=== PATIENT | female | born 1970 | race Caucasian/White ===

== ENCOUNTER → 2018-06-16 | Outpatient (CLI) | payer BC ==
[2018-06-17 09:39] LABS: Candida species (DNA Probe) Negative (NEGATIVE); G. vaginalis (DNA Probe) Negative (NEGATIVE); T. vaginalis (DNA Probe) Negative (NEGATIVE)
== END ==
LOC: LAB 10:45 → LAB SHORT 10:45
PROVIDERS: Nurse Practitioner Obstetrics & Gynecology
DX: N76.0 Acute vaginitis (principal)
CPT/HCPCS: 87480; 87510; 87660

== ENCOUNTER → 2018-11-08 | Outpatient (CLI) | payer BC ==
[~2018-11-08] MED LIST: Aviane1 EACH PO; CLON.5 PO; HYDPAM50 PO; MELA3 PO
== END | disposition home or self-care (01) ==
LOC: LAB SRC 11:45 → LAB SHORT 11:45
DX: N39.0 Urinary tract infection, site not specified (principal)
CPT/HCPCS: 87077; 87086; 87186

== ENCOUNTER → 2018-12-15 | Outpatient (CLI) | payer BC | END | disposition home or self-care (01) | LOC: LAB EV 13:35 → LAB SHORT 13:35 | DX: N39.0 Urinary tract infection, site not specified (principal) | CPT/HCPCS: 87077; 87086; 87186 ==

== ENCOUNTER → 2019-01-01 | Outpatient (CLI) | payer BC | END | disposition home or self-care (01) | LOC: LAB SHORT 11:00 → LAB 11:00 | DX: L08.9 Local infection of the skin and subcutaneous tissue, unspecified (principal) | CPT/HCPCS: 87070; 87077; 87147; 87186; 87205 ==

== ENCOUNTER → 2020-05-17 | Outpatient (CLI) | payer OTHER ==
[2020-05-21 15:08] LABS: HPV 16 Positive (Negative); HPV 18 Negative (Negative); HPV OTHER HR TYPES Negative (Negative)
== END | disposition home or self-care (01) ==
LOC: LAB SHORT 17:40 → LAB SRC 17:40
PROVIDERS: Nurse Practitioner Family
DX: Z12.4 Encounter for screening for malignant neoplasm of cervix (principal)
CPT/HCPCS: 87624; 87625; G0123

== ENCOUNTER 2021-07-30 08:00 | Day surgery (SDC) | payer BC ==
[~2021-07-30 08:00] MED LIST changes: +ALBU90OI INH; +AMLO5 PO; +BENZ100A PO; +FLONASE ALLERG9.9 M2; +LEVONOR-ETH ES1 EAC6 PO; +METO25ER PO; +POTA10T PO; +PSEUDOEPHEDRINE30 M1 PO; +TORS10 PO
== END 2021-08-01 23:29 | disposition home or self-care (01) ==
LOC: MHTC 08:00
DX: I27.20 Pulmonary hypertension, unspecified (principal); I50.810 Right heart failure, unspecified
CPT/HCPCS: J1644; J7030; J7050

== ENCOUNTER 2022-02-07 07:23 | Day surgery (SDC) | payer BC, OTHER ==
[~2022-02-07] VITALS: Ht 167.6 cm; Wt 68.0 kg
--- NOTE | 2022-02-07 10:57 | NUR ---
PT SITTING UP IN BED BEING FED BY SIGNIFICANT OTHER. PT IS AOX4, DENIES ANY PAIN. NO BLEEDING, OOZING OR HEMATOMA NOTED AT RRAD ACCES SITE. R BRACHIAL VEIN SITE HAS NO BLEEDING, OOZING OR HEMATOMA NOTED. WILL CONTINUE TO MONITOR. VSS
--- NOTE | 2022-02-07 11:33 | NUR ---
Dr Bell her to discuss finding of the procedure with patient and significant other. questions answered.
--- NOTE | 2022-02-07 12:06 | NUR ---
3mL AIR RELEASED FROM TR BAND. NO BLEEDING, OOZING OR HEMATOMA NOTED. VSS. WILL CONTINUE TO MONITOR.
--- NOTE | 2022-02-07 12:23 | NUR ---
RELEASED AN ADDITIONAL 3mL AIR FROM TR BAND. SITE WAS STABLE AND THEN STARTED BLEEDING. AIR REPLACED BACK INTO BAND. WILL WAIT ANOTHER HOUR TO RELEASE AIR FROM BAND. VSS. WILL CONTINUE TO MONITOR.
--- NOTE | 2022-02-07 13:20 | NUR ---
3mL AIR RELEASED FROM TR BAND. NO BLEEDING, OOZING OR HEMATOMA NOTED. VSS. wILL CONTINUE TO MONITOR.
--- NOTE | 2022-02-07 13:47 | NUR ---
REMAINING AIR RELEASED FROM TR BAND SLOWLY OVER 15MINS. NO BLEEDING, OOZING OR HEMATOMA NOTED. VSS. WILL CONTINUE TO MONITOR.
--- NOTE | 2022-02-07 14:46 | NUR ---
DISCHARGE PT AMBULATED TO RESTROOM AND DRESSED SELF WITH NO COMPLICATIONS. RRAD ACCESS SITE IS STABLE WITH NO BLEEDING, OOZING OR HEMATOMA NOTED. PT DENIES ANY PAIN. VSS. PT STATES HER UNDERSTANDING OF SITE CARE AND DISCHARGE INSTRUCTIONS AND DENIES ANY QUESTIONS OR CONCERNS. IV DCD WITH CATH INTACT. PT TAKEN TO EXIT VIA WHEELCHAIR WHERE SIGNIFICANT OTHER WAS WAITING WITH VEHICLE.
== END 2022-02-07 14:45 | disposition home or self-care (01) ==
LOC: MHTC 07:23 → ORSCMMR 07:24 → MHTC 07:30
DX: I27.20 Pulmonary hypertension, unspecified (principal); I13.0 Hypertensive heart and chronic kidney disease with heart failure and stage 1 through stage 4 chronic kidney disease, or unspecified chronic kidney disease; I50.810 Right heart failure, unspecified; N18.9 Chronic kidney disease, unspecified; I25.10 Atherosclerotic heart disease of native coronary artery without angina pectoris; F17.210 Nicotine dependence, cigarettes, uncomplicated; I73.9 Peripheral vascular disease, unspecified; Z88.6 Allergy status to analgesic agent; Z88.0 Allergy status to penicillin
CPT/HCPCS: 93460; 99152; 99153; C1769; C1894; J1644; J2250; J3010; J7030; J7040; Q9967

== ENCOUNTER 2022-08-24 03:55 | Emergency (ER) | payer BC, OTHER ==
[~2022-08-24] VITALS: Ht 167.6 cm; Wt 67.1 kg
[2022-08-24] MEDS ORDERED: DELTASONE20 MG PO (04:34)
== END 2022-08-24 04:45 | disposition home or self-care (01) ==
LOC: ER 03:55
DX: L29.9 Pruritus, unspecified (principal); Z88.0 Allergy status to penicillin; Z88.5 Allergy status to narcotic agent; Z79.899 Other long term (current) drug therapy; Z87.891 Personal history of nicotine dependence
CPT/HCPCS: 99282